=== PATIENT | male | born 1940 | race Caucasian/White ===

== ENCOUNTER → 2016-11-29 08:12 | Outpatient (CLI) | payer MEDICARE, OTHER ==
[2013-09-29 10:34] VITALS: BMI 26.3
[~2016-11-29 08:12] MED LIST: AMBIEN5 MG PO; ASCORBIC ACID500 MG PO; BAYER CHEWABLE81 MG PO; BYSTOLIC5 MG PO; CALCIUM 600+D T1 TA1 PO; COLACE100 MG PO; FISH OIL 500 MG1 CAP PO; GLUCOSAMINE & C1 CAP PO; METAMUCIL FIB1 WAFER PO; PERCOCET 10/3251 TA1 PO; THERAGRAN-M ADV1 TA1 PO; XARELTO10 MG PO; ZESTRIL40 MG PO; ZOCOR10 MG PO
== END | disposition home or self-care (01) ==
LOC: D.US 08:12
DX: F17.200 Nicotine dependence, unspecified, uncomplicated (principal)

== ENCOUNTER 2018-05-06 10:00 | Day surgery (SDC) | payer MEDICARE, OTHER ==
[2018-05-05 14:02] LABS: BASOPHILS 0.3 % (0-2); EOSINOPHILS 7.8 % (0-7); HEMATOCRIT 38.3 % (42.0-54.0); HEMOGLOBIN 12.9 g/dL (13.5-17.5); IMMATURE GRANULOCYTES 0.1 % (0-5); LYMPHOCYTES 28.9 % (15-50); MCH 33.2 pg (26.0-34.0); MCHC 33.7 g/dL (31.0-37.0); MCV 98.5 fL (80.0-100.0); MONOCYTES 8.8 % (2-11); NEUTROPHILS 54.1 % (40-80); RBC 3.89 10x6/uL (4.20-6.10); RDW 12.2 % (11.5-14.5)
[2018-05-05 14:09] LABS: PLATELET COUNT 198 10x3/uL (130-400)
[2018-05-05 14:23] LABS: ANION GAP 8.7 mmol/L (8-16); CALCIUM 9.6 mg/dL (8.5-10.1); CARBON DIOXIDE 33.5 mmol/L (21.0-32.0); CREATININE - SERUM 1.1 mg/dL (0.6-1.3); POTASSIUM - SERUM 4.2 mmol/L (3.5-5.1)
[~2018-05-06] VITALS: Ht 172.7 cm; Wt 76.7 kg
--- NOTE | ~2018-05-06 | OP ---
PATIENT NAME: LEA SALAZAR MEDICAL RECORD: [id number] :44 LOCATION:[facility] ADMISSION DATE: SURGEON: JAVIER SOTO MD DATE OF OPERATION: 05/06/2018 PREOPERATIVE DIAGNOSES: 1. Right inguinal hernia. 2. Hypertension. POSTOPERATIVE DIAGNOSES: 1. Right inguinal hernia. 2. Hypertension. PROCEDURE: Right inguinal hernia repair with medium PHS mesh. SURGEON: Javier Soto MD REPORT OF PROCEDURE: The patient's right groin was prepped and draped in sterile fashion. An oblique incision was made above the inguinal ligament. Electrocautery was used to dissect through the subcutaneous tissues down to the external oblique fascia. This fascia was opened up to the external ring using electrocautery. The ilioinguinal nerve was then found and high ligated. The spermatic cord was elevated and a Susan was placed around it. The patient was initially noted to have a large cord lipoma, which was dissected free and high ligated with a 3-0 silk tie. The patient also had an indirect hernia defect. The hernia sac was dissected from the spermatic cord and pushed back into the abdominal cavity. A window was then made at the base of the inguinal canal and the preperitoneal space of Retzius was opened up. A medium PHS mesh was inserted and sutured down on all sides using multiple interrupted 0 Vicryls. The wound was then irrigated out with normal saline and care was taken to assure there was no sign of any bleeding. At this point, the external oblique fascia was closed with running 2-0 Vicryl, Henrry's was closed with interrupted 3-0 Vicryl, and the skin was closed with running subcutaneous 5-0 Monocryl. A 10 mL of 0.25% Marcaine with epinephrine was infused into the surrounding tissues and the wound was dressed appropriately. COMPLICATIONS: None. CONDITION: Stable. ANESTHESIA: General endotracheal and local. BLOOD LOSS: Minimal. TRANSINT:[id number] Voice Confirmation ID: [id number] DOCUMENT ID: [id number] JAVIER SOTO MD at 1409 CC: MEME CASEY [id number] DICTATION DATE: 05/06/18 1319 [facility] SORTER: 05/06/18 1329 [facility] 05/06/18 [place] [id number]
[2018-05-06 10:35] VITALS: BP 143/70; Ht 172.7 cm; Wt 76.7 kg
[2018-05-06] MEDS ORDERED: NORCO 10-325 TA1 TAB PO (13:15)
== END 2018-05-06 16:00 | disposition home or self-care (01) ==
LOC: D.OPS 10:00 → D.PAN 12:00 → D.OPS 12:00
PROVIDERS: Surgery
DX: K40.90 Unilateral inguinal hernia, without obstruction or gangrene, not specified as recurrent (principal)